=== PATIENT | female | born 1950 | race Caucasian/White ===

== ENCOUNTER 2016-12-20 21:09 | Observation (INO) | payer MEDICARE, BC ==
[2016-12-20] MEDS ORDERED: Nitroglycerin TAB 0.4 MG* 0.4 MG TAB SL ONE (21:45)
[2016-12-20] MEDS ORDERED: NS 0.9% 1000 ML* 1,000 ML IV SCH (21:45)
--- NOTE | 2016-12-20 22:05 | RAD ---
INDICATION: Chest pain. COMPARISON: Comparison is made with a prior study from December 08, 2014. TECHNIQUE: A portable view of the chest was obtained. FINDINGS: Cardiac and mediastinal contours appear to be within normal limits. The lungs are clear. No pleural effusion is seen. IMPRESSION: NO EVIDENCE FOR ACUTE DISEASE.
[2016-12-20 23:26] LABS: Hematocrit 40 % (35-47); Hemoglobin 13.3 g/dl (12.0-16.0); Mean Corpuscular HGB Conc 33 g/dl (31-36); Mean Corpuscular Hemoglobin 29 pg (27-31); Mean Corpuscular Volume 88 fL (80-97); Mean Platelet Volume 8 um3 (7.4-10.4); Red Blood Count 4.53 10^6/ul (4.0-5.4); Red Cell Distribution Width 14 % (10.5-15); White Blood Count 10.2 10^3/ul (3.5-10.8)
[2016-12-20 23:32] LABS: Urine Bacteria Absent (Absent); Urine Bilirubin Negative (Negative); Urine Glucose Negative (Negative); Urine Nitrite Negative (Negative)
[2016-12-20 23:43] LABS: BUN/Creatinine Ratio 33.8 (8-20); C Reactive Protein 4.08 mg/L (< 5.00); Calcium 9.7 mg/dL (8.6-10.3); EGFR African American 116.6 (>60); EGFR Non-African American 90.6 (>60); Magnesium 1.9 mg/dL (1.9-2.7); Potassium 3.5 mmol/L (3.5-5.0); Total Bilirubin 0.5 mg/dL (0.2-1.0)
[2016-12-20 23:45] LABS: Troponin I 0.01 ng/mL (<0.04)
[2016-12-21 00:28] LABS: TSH (Thyroid Stimulating Horm) 1.01 mcIU/mL (0.34-5.60)
--- NOTE | 2016-12-21 00:33 | ED ---
Asa Jay Janilya, scribed for Nhan Elma MD on 12/20/16 at 2130 . HPI Chest Pain - HPI Summary HPI Summary: A 66 y/o female came in to [facility] presenting w/ a sudden episode of CP that occurred today at 1915. Pt was pushing her 's wheelchair when she suddenly felt "a quick squeeze lasting 5-6 seconds". She reports that she sat down and waited for a few mins to catch her breath because she was having trouble breathing. She felt like there was a golf ball in her throat and like her Leroy's apple was swollen. She states that her throat was manning and tighter. Walking around, sitting down, and drinking iced tea did not alleviate the symptoms. Thereafter, she called 911. At [facility] now, throat still feels "a little funny". Pt denies feeling nauseous. In addition, she reports elevated blood pressure. Normally, according to pt, her blood pressure is 120/80. When she self-measured her bp, it was 202/78. PMHx HTN. Takes medicine for cholesterol and HTN. No PMHx DM. Had a stress test a year ago. FMHx angina-mother. PSHx gallbladder removed. Allergic to aspirin. - History of Current Complaint Chief Complaint: EDChestPainROMI Time Seen by Provider: 12/20/16 21:28 Hx Obtained From: Patient Pain Intensity: 0 - Allergy/Home Medications Allergies/Adverse Reactions: Allergies Allergy/AdvReac Type Severity Reaction Status Date / Time Aspirin Allergy Severe ITCHING, Verified 12/08/14 08:12 FACE TURNED PINK Eggs or Egg-derived Products Allergy Severe BLOATING Verified 12/08/14 08:12 Erythromycin Allergy Severe LIGHTHEADED, Verified 12/08/14 08:12 DIZZY, NEAR-SYNCOPE Metronidazole [From Flagyl] Allergy Severe LIGHTHEADED Verified 12/08/14 08:12 NESS Omeprazole Allergy Severe MUSCLE PAIN Verified 12/08/14 08:12 Penicillins Allergy Severe REDNESS, Verified 12/08/14 08:12 ITCHING Cephalexin [From Keflex] Allergy Unknown Unknown Verified 12/08/14 08:12 Reaction Details Doxycycline Allergy Unknown Unknown Verified 12/08/14 08:12 Reaction Details PMH/Surg Hx/FS Hx/Imm Hx Endocrine/Hematology History: Reports: Hx Thyroid Disease Cardiovascular History: Reports: Hx Hypertension Musculoskeletal History: Denies: Hx Rheumatoid Arthritis, Hx Osteoporosis - Cancer History Hx Chemotherapy: No Hx Radiation Therapy: No - Surgical History Surgery Procedure, Year, and Place: HYSTERECTOMY-1979 Infectious Disease History: No Infectious Disease History: Reports: Hx Shingles Denies: Traveled Outside the [place] in Last 30 Days - Family History Known Family History: Positive: Cardiac Disease - CAD, ANGINA, Other - CVA, BREAST CANCER, stomach problems - Social History Alcohol Use: None Hx Substance Use: No Substance Use Type: Reports: None Hx Tobacco Use: No Smoking Status (MU): Never Smoked Tobacco Review of Systems Positive: Chest Pain, Other - high blood pressure Positive: Shortness Of Breath Negative: Nausea All Other Systems Reviewed And Are Negative: Yes Physical Exam Triage Information Reviewed: Yes Vital Signs On Initial Exam: Initial Vitals Temp Pulse Resp BP Pulse Ox 97.9 F 64 16 132/51 100 12/20/16 21:21 12/20/16 21:21 12/20/16 21:21 12/20/16 21:21 12/20/16 21:21 Vital Signs Reviewed: Yes Appearance: Positive: Well-Appearing, No Pain Distress Skin: Positive: Warm, Skin Color Reflects Adequate Perfusion, Dry Head/Face: Positive: Normal Head/Face Inspection Eyes: Positive: EOMI, SRI ENT: Positive: Normal ENT inspection Neck: Positive: Supple, Nontender Respiratory/Lung Sounds: Positive: Clear to Auscultation, Breath Sounds Present Cardiovascular: Positive: RRR Abdomen Description: Positive: Nontender, Soft Bowel Sounds: Positive: Present Musculoskeletal: Positive: Normal, Strength/ROM Intact Neurological: Positive: Normal, Sensory/Motor Intact, Alert, Oriented to Person Place, Time Psychiatric: Positive: Affect/Mood Appropriate Diagnostics - Vital Signs Vital Signs Temp Pulse Resp BP Pulse Ox 12/20/16 21:21 97.9 F 64 16 132/51 100 - Laboratory Lab Results: Lab Results 12/20/16 12/20/16 12/20/16 Range/Units 22:30 22:30 22:30 WBC 10.2 (3.5-10.8) 10^3/ul RBC 4.53 (4.0-5.4) 10^6/ul Hgb 13.3 (12.0-16.0) g/dl Hct 40 (35-47) % MCV 88 (80-97) fL MCH 29 (27-31) pg MCHC 33 (31-36) g/dl RDW 14 (10.5-15) % Plt Count 226 (150-450) 10^3/ul MPV 8 (7.4-10.4) um3 Neut % (Auto) 69.6 (38-83) % Lymph % (Auto) 21.5 L (25-47) % [place] % (Auto) 6.8 (1-9) % Eos % (Auto) 0.7 (0-6) % Baso % (Auto) 1.4 (0-2) % Absolute Neuts (auto) 7.1 (1.5-7.7) 10^3/ul Absolute Lymphs (auto) 2.2 (1.0-4.8) 10^3/ul Absolute Monos (auto) 0.7 (0-0.8) 10^3/ul Absolute Eos (auto) 0.1 (0-0.6) 10^3/ul Absolute Basos (auto) 0.1 (0-0.2) 10^3/ul Absolute Nucleated RBC 0 10^3/ul Nucleated RBC % 0 INR (Anticoag Therapy) 0.91 (0.89-1.11) APTT 30.8 (26.0-36.3) seconds D-Dimer, Quantitative < 200 (Less Than 230) ng/mL Sodium (133-145) mmol/L Potassium (3.5-5.0) mmol/L Chloride (101-111) mmol/L Carbon Dioxide (22-32) mmol/L Anion Gap (2-11) mmol/L BUN (6-24) mg/dL Creatinine (0.51-0.95) mg/dL Est GFR ( Amer) (>60) Est GFR (Non-Af Amer) (>60) BUN/Creatinine Ratio (8-20) Glucose (70-100) mg/dL Lactic Acid (0.5-2.0) mmol/L Calcium (8.6-10.3) mg/dL Magnesium (1.9-2.7) mg/dL Total Bilirubin (0.2-1.0) mg/dL AST (13-39) U/L ALT (7-52) U/L Alkaline Phosphatase (34-104) U/L Total Creatine Kinase (10-223) U/L CK-MB (CK-2) (0.6-6.3) ng/mL Troponin I (<0.04) ng/mL C-Reactive Protein (< 5.00) mg/L B-Natriuretic Peptide ( - 100) pg/mL Total Protein (6.4-8.9) g/dL Albumin (3.2-5.2) g/dL Globulin (2-4) g/dL Albumin/Globulin Ratio (1-3) Lipase (11.0-82.0) U/L TSH (0.34-5.60) mcIU/mL Urine Color Straw Urine Appearance Clear Urine pH 5.0 (5-9) Ur Specific [place] 1.008 L (1.010-1.030) Urine Protein Negative (Negative) Urine Ketones Trace H (Negative) Urine Blood 2+ H (Negative) Urine Nitrate Negative (Negative) Urine Bilirubin Negative (Negative) Urine Urobilinogen Negative (Negative) Ur Leukocyte Esterase 2+ H (Negative) Urine WBC (Auto) 2+(11-20/hpf) H (Absent) Urine RBC (Auto) Trace(0-2/hpf) (Absent) Ur Squamous Epith Cells Present H (Absent) Urine Bacteria Absent (Absent) Urine Glucose Negative (Negative) 12/20/16 12/20/16 12/20/16 Range/Units 22:30 22:30 22:30 WBC (3.5-10.8) 10^3/ul RBC (4.0-5.4) 10^6/ul Hgb (12.0-16.0) g/dl Hct (35-47) % MCV (80-97) fL MCH (27-31) pg MCHC (31-36) g/dl RDW (10.5-15) % Plt Count (150-450) 10^3/ul MPV (7.4-10.4) um3 Neut % (Auto) (38-83) % Lymph % (Auto) (25-47) % [place] % (Auto) (1-9) % Eos % (Auto) (0-6) % Baso % (Auto) (0-2) % Absolute Neuts (auto) (1.5-7.7) 10^3/ul Absolute Lymphs (auto) (1.0-4.8) 10^3/ul Absolute Monos (auto) (0-0.8) 10^3/ul Absolute Eos (auto) (0-0.6) 10^3/ul Absolute Basos (auto) (0-0.2) 10^3/ul Absolute Nucleated RBC 10^3/ul Nucleated RBC % INR (Anticoag Therapy) (0.89-1.11) APTT (26.0-36.3) seconds D-Dimer, Quantitative (Less Than 230) ng/mL Sodium 139 (133-145) mmol/L Potassium 3.5 (3.5-5.0) mmol/L Chloride 105 (101-111) mmol/L Carbon Dioxide 26 (22-32) mmol/L Anion Gap 8 (2-11) mmol/L BUN 22 (6-24) mg/dL Creatinine 0.65 (0.51-0.95) mg/dL Est GFR ( Amer) 116.6 (>60) Est GFR (Non-Af Amer) 90.6 (>60) BUN/Creatinine Ratio 33.8 H (8-20) Glucose 102 H (70-100) mg/dL Lactic Acid 0.7 (0.5-2.0) mmol/L Calcium 9.7 (8.6-10.3) mg/dL Magnesium 1.9 (1.9-2.7) mg/dL Total Bilirubin 0.50 (0.2-1.0) mg/dL AST 21 (13-39) U/L ALT 20 (7-52) U/L Alkaline Phosphatase 62 (34-104) U/L Total Creatine Kinase 218 (10-223) U/L CK-MB (CK-2) 7.8 H (0.6-6.3) ng/mL Troponin I 0.01 (<0.04) ng/mL C-Reactive Protein 4.08 (< 5.00) mg/L B-Natriuretic Peptide 33 ( - 100) pg/mL Total Protein 7.0 (6.4-8.9) g/dL Albumin 4.0 (3.2-5.2) g/dL Globulin 3.0 (2-4) g/dL Albumin/Globulin Ratio 1.3 (1-3) Lipase 19 (11.0-82.0) U/L TSH 1.01 (0.34-5.60) mcIU/mL Urine Color Urine Appearance Urine pH (5-9) Ur Specific [place] (1.010-1.030) Urine Protein (Negative) Urine Ketones (Negative) Urine Blood (Negative) Urine Nitrate (Negative) Urine Bilirubin (Negative) Urine Urobilinogen (Negative) Ur Leukocyte Esterase (Negative) Urine WBC (Auto) (Absent) Urine RBC (Auto) (Absent) Ur Squamous Epith Cells (Absent) Urine Bacteria (Absent) Urine Glucose (Negative) Result Diagrams: 12/20/16 22:30 12/20/16 22:30 Lab Statement: Any lab studies that have been ordered have been reviewed, and results considered in the medical decision making process. - Radiology CXR Xray Interpretation: No Acute Changes - IMPRESSION: No evidence for acute disease. Radiology Interpretation Completed By: Radiologist Chest Pain Course/Dx - Course Assessment/Plan: DISCUSSED RESULTS WITH PATIENT. IN ED, WHEN PATIENT AMBULATED, THE THROAT FULLNESS SENSATION WOULD RETURN. ADMIT HOSPITALIST STABLE. - Diagnoses Provider Diagnoses: Chest pain Discharge - Discharge Plan Condition: Stable Disposition: ADMITTED TO [facility] Referrals: Meenakshi Ramey MD [Primary Care Provider] - The documentation as recorded by the Asa carias Janilya accurately reflects the service I personally performed and the decisions made by , Nhan Elam MD.
--- NOTE | 2016-12-21 00:36 | HP ---
H&P (Free Text) History and Physical: PCP: Alee Ramey MD Date/Time of Evaluation: 12/21/2016 0220 CC: chest pain HPI: Mrs Pond is a 66YO female reporting onset of sharp substernal chest pain radiating pressure into the anterior neck while pushing her 300# 's wheelchair at home. The pain went away with rest. There was a difficulty taking a deep breath, but she denies "shortness of breath" and is uncertain whether it made the pain worse. She did have some palpitations, but no N/V, sweating, or light-headedness. She denies prior similar episodes. Work up is thus far unrevealing. While in the ED she ambulated twice to the restroom with return of the anterior throat tightness which was improved by returning to bed and completely relieved with SL nitro. PMedHx HTN HLD GERD seasonal allergies Allergies Aspirin Allergy (Severe, Verified 12/08/14 08:12) ITCHING, FACE TURNED PINK Eggs or Egg-derived Products Allergy (Severe, Verified 12/08/14 08:12) BLOATING Erythromycin Allergy (Severe, Verified 12/08/14 08:12) LIGHTHEADED, DIZZY, NEAR-SYNCOPE Metronidazole [From Flagyl] Allergy (Severe, Verified 12/08/14 08:12) LIGHTHEADEDNESS Omeprazole Allergy (Severe, Verified 12/08/14 08:12) MUSCLE PAIN Penicillins Allergy (Severe, Verified 12/08/14 08:12) REDNESS, ITCHING Cephalexin [From Keflex] Allergy (Unknown, Verified 12/08/14 08:12) Unknown Reaction Details Doxycycline Allergy (Unknown, Verified 12/08/14 08:12) Unknown Reaction Details Ambulatory Orders Atenolol TAB* [Tenormin TAB*] 50 mg PO DAILY 08/26/14 Ezetimibe TAB* [Zetia TAB*] 10 mg PO DAILY 08/26/14 Famotidine TAB* [Pepcid TAB*] 40 mg PO DAILY 08/26/14 Hydrochlorothiazide TAB* [Hydrodiuril TAB*] 25 mg PO DAILY 08/26/14 Levothyroxine TAB* [Synthroid 75 MCG TAB*] 75 mcg PO 0800 08/26/14 Loratadine & Pseudoephedrine [Claritin-D 24 Hour 10-240 mg] 1 tab PO DAILY 08/26 Mometasone Furoate (Nasal) [Nasonex] 1 spray BOTH NARES DAILY 12/08/14 PSurgHx cholecystectomy appendectomy hysterectomy SocHx: no tobacco, alcohol, or recreational drug HX; lives with her ; full code status FamHx: reviewed, non-contributory ROS: as above, otherwise reviewed and all were negative Constitutional: NAD, normally developed, overweight white female vitals: Vital Signs Temp 36.6 C 12/20/16 21:21 Pulse 60 12/21/16 03:00 Resp 12 12/21/16 03:00 BP 112/57 12/21/16 03:00 Pulse Ox 95 12/21/16 03:00 Intake & Output 12/20/16 12/20/16 12/21/16 11:59 23:59 11:59 Weight 150 lb HEENM: atraumatic; sclera/conjunctiva: non-icteric/clear; hearing: intact; oropharynx: clear, mucosa moist Neck: soft tissue: non-tender; thyroid: normal Pulmonary: clear to auscultation bilaterally, good aeration, no accessory muscle use CV: RR/RR, normal S1S2, no carotid bruit, no jugular venous distention, 2+ B DP/ PT, no edema Abdominal: soft, non-distended, non-tender, no rebound/guarding/rigidity, normoactive bowel sounds, no hepatosplenomegaly or masses, no costovertebral angle tenderness Musculoskeletal: general: grossly intact; gait: stable Integumental: normal appearance and texture Psychiatric orientation: AA&O to PPS affect: calm mood: cooperative eye contact: good content: reliable responses: timely insight: good Testing: Lab Results 12/20/16 12/20/16 12/20/16 Range/Units 22:30 22:30 22:30 WBC 10.2 (3.5-10.8) 10^3/ul RBC 4.53 (4.0-5.4) 10^6/ul Hgb 13.3 (12.0-16.0) g/dl Hct 40 (35-47) % MCV 88 (80-97) fL MCH 29 (27-31) pg MCHC 33 (31-36) g/dl RDW 14 (10.5-15) % Plt Count 226 (150-450) 10^3/ul MPV 8 (7.4-10.4) um3 Neut % (Auto) 69.6 (38-83) % Lymph % (Auto) 21.5 L (25-47) % [place] % (Auto) 6.8 (1-9) % Eos % (Auto) 0.7 (0-6) % Baso % (Auto) 1.4 (0-2) % Absolute Neuts (auto) 7.1 (1.5-7.7) 10^3/ul Absolute Lymphs (auto) 2.2 (1.0-4.8) 10^3/ul Absolute Monos (auto) 0.7 (0-0.8) 10^3/ul Absolute Eos (auto) 0.1 (0-0.6) 10^3/ul Absolute Basos (auto) 0.1 (0-0.2) 10^3/ul Absolute Nucleated RBC 0 10^3/ul Nucleated RBC % 0 INR (Anticoag Therapy) 0.91 (0.89-1.11) APTT 30.8 (26.0-36.3) seconds D-Dimer, Quantitative < 200 (Less Than 230) ng/mL Sodium (133-145) mmol/L Potassium (3.5-5.0) mmol/L Chloride (101-111) mmol/L Carbon Dioxide (22-32) mmol/L Anion Gap (2-11) mmol/L BUN (6-24) mg/dL Creatinine (0.51-0.95) mg/dL Est GFR ( Amer) (>60) Est GFR (Non-Af Amer) (>60) BUN/Creatinine Ratio (8-20) Glucose (70-100) mg/dL Lactic Acid (0.5-2.0) mmol/L Calcium (8.6-10.3) mg/dL Magnesium (1.9-2.7) mg/dL Total Bilirubin (0.2-1.0) mg/dL AST (13-39) U/L ALT (7-52) U/L Alkaline Phosphatase (34-104) U/L Total Creatine Kinase (10-223) U/L CK-MB (CK-2) (0.6-6.3) ng/mL Troponin I (<0.04) ng/mL C-Reactive Protein (< 5.00) mg/L B-Natriuretic Peptide ( - 100) pg/mL Total Protein (6.4-8.9) g/dL Albumin (3.2-5.2) g/dL Globulin (2-4) g/dL Albumin/Globulin Ratio (1-3) Lipase (11.0-82.0) U/L TSH (0.34-5.60) mcIU/mL Urine Color Straw Urine Appearance Clear Urine pH 5.0 (5-9) Ur Specific [place] 1.008 L (1.010-1.030) Urine Protein Negative (Negative) Urine Ketones Trace H (Negative) Urine Blood 2+ H (Negative) Urine Nitrate Negative (Negative) Urine Bilirubin Negative (Negative) Urine Urobilinogen Negative (Negative) Ur Leukocyte Esterase 2+ H (Negative) Urine WBC (Auto) 2+(11-20/hpf) H (Absent) Urine RBC (Auto) Trace(0-2/hpf) (Absent) Ur Squamous Epith Cells Present H (Absent) Urine Bacteria Absent (Absent) Urine Glucose Negative (Negative) 12/20/16 12/20/16 12/20/16 Range/Units 22:30 22:30 22:30 WBC (3.5-10.8) 10^3/ul RBC (4.0-5.4) 10^6/ul Hgb (12.0-16.0) g/dl Hct (35-47) % MCV (80-97) fL MCH (27-31) pg MCHC (31-36) g/dl RDW (10.5-15) % Plt Count (150-450) 10^3/ul MPV (7.4-10.4) um3 Neut % (Auto) (38-83) % Lymph % (Auto) (25-47) % [place] % (Auto) (1-9) % Eos % (Auto) (0-6) % Baso % (Auto) (0-2) % Absolute Neuts (auto) (1.5-7.7) 10^3/ul Absolute Lymphs (auto) (1.0-4.8) 10^3/ul Absolute Monos (auto) (0-0.8) 10^3/ul Absolute Eos (auto) (0-0.6) 10^3/ul Absolute Basos (auto) (0-0.2) 10^3/ul Absolute Nucleated RBC 10^3/ul Nucleated RBC % INR (Anticoag Therapy) (0.89-1.11) APTT (26.0-36.3) seconds D-Dimer, Quantitative (Less Than 230) ng/mL Sodium 139 (133-145) mmol/L Potassium 3.5 (3.5-5.0) mmol/L Chloride 105 (101-111) mmol/L Carbon Dioxide 26 (22-32) mmol/L Anion Gap 8 (2-11) mmol/L BUN 22 (6-24) mg/dL Creatinine 0.65 (0.51-0.95) mg/dL Est GFR ( Amer) 116.6 (>60) Est GFR (Non-Af Amer) 90.6 (>60) BUN/Creatinine Ratio 33.8 H (8-20) Glucose 102 H (70-100) mg/dL Lactic Acid 0.7 (0.5-2.0) mmol/L Calcium 9.7 (8.6-10.3) mg/dL Magnesium 1.9 (1.9-2.7) mg/dL Total Bilirubin 0.50 (0.2-1.0) mg/dL AST 21 (13-39) U/L ALT 20 (7-52) U/L Alkaline Phosphatase 62 (34-104) U/L Total Creatine Kinase 218 (10-223) U/L CK-MB (CK-2) 7.8 H (0.6-6.3) ng/mL Troponin I 0.01 (<0.04) ng/mL C-Reactive Protein 4.08 (< 5.00) mg/L B-Natriuretic Peptide 33 ( - 100) pg/mL Total Protein 7.0 (6.4-8.9) g/dL Albumin 4.0 (3.2-5.2) g/dL Globulin 3.0 (2-4) g/dL Albumin/Globulin Ratio 1.3 (1-3) Lipase 19 (11.0-82.0) U/L TSH 1.01 (0.34-5.60) mcIU/mL Urine Color Urine Appearance Urine pH (5-9) Ur Specific [place] (1.010-1.030) Urine Protein (Negative) Urine Ketones (Negative) Urine Blood (Negative) Urine Nitrate (Negative) Urine Bilirubin (Negative) Urine Urobilinogen (Negative) Ur Leukocyte Esterase (Negative) Urine WBC (Auto) (Absent) Urine RBC (Auto) (Absent) Ur Squamous Epith Cells (Absent) Urine Bacteria (Absent) Urine Glucose (Negative) 12/21/16 Range/Units 01:25 WBC (3.5-10.8) 10^3/ul RBC (4.0-5.4) 10^6/ul Hgb (12.0-16.0) g/dl Hct (35-47) % MCV (80-97) fL MCH (27-31) pg MCHC (31-36) g/dl RDW (10.5-15) % Plt Count (150-450) 10^3/ul MPV (7.4-10.4) um3 Neut % (Auto) (38-83) % Lymph % (Auto) (25-47) % [place] % (Auto) (1-9) % Eos % (Auto) (0-6) % Baso % (Auto) (0-2) % Absolute Neuts (auto) (1.5-7.7) 10^3/ul Absolute Lymphs (auto) (1.0-4.8) 10^3/ul Absolute Monos (auto) (0-0.8) 10^3/ul Absolute Eos (auto) (0-0.6) 10^3/ul Absolute Basos (auto) (0-0.2) 10^3/ul Absolute Nucleated RBC 10^3/ul Nucleated RBC % INR (Anticoag Therapy) (0.89-1.11) APTT (26.0-36.3) seconds D-Dimer, Quantitative (Less Than 230) ng/mL Sodium (133-145) mmol/L Potassium (3.5-5.0) mmol/L Chloride (101-111) mmol/L Carbon Dioxide (22-32) mmol/L Anion Gap (2-11) mmol/L BUN (6-24) mg/dL Creatinine (0.51-0.95) mg/dL Est GFR ( Amer) (>60) Est GFR (Non-Af Amer) (>60) BUN/Creatinine Ratio (8-20) Glucose (70-100) mg/dL Lactic Acid (0.5-2.0) mmol/L Calcium (8.6-10.3) mg/dL Magnesium (1.9-2.7) mg/dL Total Bilirubin (0.2-1.0) mg/dL AST (13-39) U/L ALT (7-52) U/L Alkaline Phosphatase (34-104) U/L Total Creatine Kinase (10-223) U/L CK-MB (CK-2) (0.6-6.3) ng/mL Troponin I 0.01 (<0.04) ng/mL C-Reactive Protein (< 5.00) mg/L B-Natriuretic Peptide ( - 100) pg/mL Total Protein (6.4-8.9) g/dL Albumin (3.2-5.2) g/dL Globulin (2-4) g/dL Albumin/Globulin Ratio (1-3) Lipase (11.0-82.0) U/L TSH (0.34-5.60) mcIU/mL Urine Color Urine Appearance Urine pH (5-9) Ur Specific [place] (1.010-1.030) Urine Protein (Negative) Urine Ketones (Negative) Urine Blood (Negative) Urine Nitrate (Negative) Urine Bilirubin (Negative) Urine Urobilinogen (Negative) Ur Leukocyte Esterase (Negative) Urine WBC (Auto) (Absent) Urine RBC (Auto) (Absent) Ur Squamous Epith Cells (Absent) Urine Bacteria (Absent) Urine Glucose (Negative) ECG, personally reviewed: NSR rate 61, no ischemia CXR, personally reviewed: IMPRESSION: NO EVIDENCE FOR ACUTE DISEASE. Impression: 66F presenting with a constellation concerning for unstable angina DIAGNOSIS & PLAN Primary unstable angina : telemetry : trend troponin : aspirin : continue atenolol : heparin GTT : check lipids in AM : repeat ECG in AM : supplemental oxygen : recommend chemical nuclear stress test or cardiology consult prior to discharge : supportive care Secondary HTN : continue atenolol : hold HCTZ HLD : continue rosuvastatin GERD : continue famotidine hypothyroidism : continue levothyroxine Admission Rational: observation for r/o ACS DVTp: SCDs & heparin SQ Code Status: full HCP:
[2016-12-21] MEDS ORDERED: Ondansetron INJ* 2 MG/ML VIAL IV PRN (02:49)
[2016-12-21] MEDS ORDERED: CMCS: Melatonin (NF) 3 MG TAB PO PRN (02:49)
[2016-12-21] MEDS ORDERED: NS 0.9% 1000 ML* 1,000 ML IV SCH (03:00)
[2016-12-21] MEDS ORDERED: Heparin VIAL(*) 5000 UNITS/ML VIAL (FIVE THOUSAND) ONE (03:52)
[2016-12-21] MEDS: Heparin DRIP 25,000 UNITS(*) 25,000 UNITS/500 ML BAG IVPB SCH ×2 (04:15→08:53)
[2016-12-21] MEDS ORDERED: Heparin VIAL(*) 5000 UNITS/ML VIAL (FIVE THOUSAND) IV SCH (05:00)
[2016-12-21] MEDS: Levothyroxine TAB* 75 MCG TAB PO SCH (05:34)
[2016-12-21 06:13] LABS: HDL Cholesterol 75.4 mg/dL
[2016-12-21] MEDS: Atenolol TAB* 50 MG PO SCH (07:50)
[2016-12-21] MEDS: Famotidine TAB* 20 MG PO SCH (07:50)
[2016-12-21] MEDS ORDERED: Atorvastatin* 40 MG TAB PO SCH ×2 (09:00→20:15)
[2016-12-21] MEDS ORDERED: Docusate CAP* 100 MG PO SCH (09:00)
--- NOTE | 2016-12-21 13:09 | PN ---
Subjective Date of Service: 12/21/16 Interval History: No more chest or throat pain. The throat pain she had in the ED after walking to the [place] was different than the chest pain she had while pushing her in his WC. Objective Active Medications: Acetaminophen (Tylenol Tab*) 650 mg PO Q6H PRN PRN Reason: FEVER/PAIN Atenolol (Tenormin Tab*) 25 mg PO DAILY [facility] Last Admin: 12/21/16 07:50 Dose: 25 mg Atorvastatin Calcium (Lipitor*) 40 mg PO 2015 [facility] Docusate Sodium (Colace Cap*) 200 mg PO BID [facility] Last Admin: 12/21/16 09:39 Dose: Not Given Enoxaparin Sodium (Lovenox(*)) 40 mg SUBCUT Q24H [facility] Famotidine (Pepcid Tab*) 40 mg PO DAILY [facility] Last Admin: 12/21/16 07:50 Dose: 40 mg Sodium Chloride (Ns 0.9% 1000 Ml*) 1,000 mls @ 75 mls/hr IV PER RATE [facility] Levothyroxine Sodium (Synthroid Tab*) 75 mcg PO DAILY@0600 [facility] Last Admin: 12/21/16 05:34 Dose: 75 mcg Melatonin (Melatonin (Nf)) 3 mg PO BEDTIME PRN; Protocol PRN Reason: Sleep Ondansetron HCl (Zofran Inj*) 4 mg IV Q6H PRN PRN Reason: NAUSEA Vital Signs 12/21/16 12/21/16 12/21/16 05:00 05:25 05:44 Temperature 97.8 F Pulse Rate 56 57 Respiratory 17 16 16 Rate Blood Pressure 105/73 99/51 (mmHg) O2 Sat by Pulse 92 100 Oximetry 12/21/16 12/21/16 07:16 08:00 Temperature 98.0 F Pulse Rate 51 Respiratory 14 14 Rate Blood Pressure 109/50 (mmHg) O2 Sat by Pulse 99 Oximetry Oxygen Devices in Use Now: None Appearance: Alert, partly up inbed. In good spirits. Looks comfortable. Eyes: No Scleral Icterus Ears/Nose/Mouth/Throat: Clear Oropharnyx, Mucous Membranes Moist Neck: NL Appearance and Movements; NL JVP, No Thyroid Enlargement, Masses Respiratory: Symmetrical Chest Expansion and Respiratory Effort, Clear to Auscultation, Clear to Percussion Extremities: No Edema, No Clubbing, Cyanosis, - Skin: No Rash or Ulcers, No Nodules or Sclerosis, - Neurological: Alert and Oriented x 3, NL Sensation Result Diagrams: 12/20/16 22:30 12/20/16 22:30 Additional Lab and Data: Lab Results 12/20/16 12/20/16 12/20/16 Range/Units 22:30 22:30 22:30 WBC 10.2 (3.5-10.8) 10^3/ul RBC 4.53 (4.0-5.4) 10^6/ul Hgb 13.3 (12.0-16.0) g/dl Hct 40 (35-47) % MCV 88 (80-97) fL MCH 29 (27-31) pg MCHC 33 (31-36) g/dl RDW 14 (10.5-15) % Plt Count 226 (150-450) 10^3/ul MPV 8 (7.4-10.4) um3 Neut % (Auto) 69.6 (38-83) % Lymph % (Auto) 21.5 L (25-47) % [place] % (Auto) 6.8 (1-9) % Eos % (Auto) 0.7 (0-6) % Baso % (Auto) 1.4 (0-2) % Absolute Neuts (auto) 7.1 (1.5-7.7) 10^3/ul Absolute Lymphs (auto) 2.2 (1.0-4.8) 10^3/ul Absolute Monos (auto) 0.7 (0-0.8) 10^3/ul Absolute Eos (auto) 0.1 (0-0.6) 10^3/ul Absolute Basos (auto) 0.1 (0-0.2) 10^3/ul Absolute Nucleated RBC 0 10^3/ul Nucleated RBC % 0 INR (Anticoag Therapy) 0.91 (0.89-1.11) APTT 30.8 (26.0-36.3) seconds D-Dimer, Quantitative < 200 (Less Than 230) ng/mL Sodium (133-145) mmol/L Potassium (3.5-5.0) mmol/L Chloride (101-111) mmol/L Carbon Dioxide (22-32) mmol/L Anion Gap (2-11) mmol/L BUN (6-24) mg/dL Creatinine (0.51-0.95) mg/dL Est GFR ( Amer) (>60) Est GFR (Non-Af Amer) (>60) BUN/Creatinine Ratio (8-20) Glucose (70-100) mg/dL Lactic Acid (0.5-2.0) mmol/L Calcium (8.6-10.3) mg/dL Magnesium (1.9-2.7) mg/dL Total Bilirubin (0.2-1.0) mg/dL AST (13-39) U/L ALT (7-52) U/L Alkaline Phosphatase (34-104) U/L Total Creatine Kinase (10-223) U/L CK-MB (CK-2) (0.6-6.3) ng/mL Troponin I (<0.04) ng/mL C-Reactive Protein (< 5.00) mg/L B-Natriuretic Peptide ( - 100) pg/mL Total Protein (6.4-8.9) g/dL Albumin (3.2-5.2) g/dL Globulin (2-4) g/dL Albumin/Globulin Ratio (1-3) Lipase (11.0-82.0) U/L TSH (0.34-5.60) mcIU/mL Urine Color Straw Urine Appearance Clear Urine pH 5.0 (5-9) Ur Specific [place] 1.008 L (1.010-1.030) Urine Protein Negative (Negative) Urine Ketones Trace H (Negative) Urine Blood 2+ H (Negative) Urine Nitrate Negative (Negative) Urine Bilirubin Negative (Negative) Urine Urobilinogen Negative (Negative) Ur Leukocyte Esterase 2+ H (Negative) Urine WBC (Auto) 2+(11-20/hpf) H (Absent) Urine RBC (Auto) Trace(0-2/hpf) (Absent) Ur Squamous Epith Cells Present H (Absent) Urine Bacteria Absent (Absent) Urine Glucose Negative (Negative) 12/20/16 12/20/16 12/20/16 Range/Units 22:30 22:30 22:30 WBC (3.5-10.8) 10^3/ul RBC (4.0-5.4) 10^6/ul Hgb (12.0-16.0) g/dl Hct (35-47) % MCV (80-97) fL MCH (27-31) pg MCHC (31-36) g/dl RDW (10.5-15) % Plt Count (150-450) 10^3/ul MPV (7.4-10.4) um3 Neut % (Auto) (38-83) % Lymph % (Auto) (25-47) % [place] % (Auto) (1-9) % Eos % (Auto) (0-6) % Baso % (Auto) (0-2) % Absolute Neuts (auto) (1.5-7.7) 10^3/ul Absolute Lymphs (auto) (1.0-4.8) 10^3/ul Absolute Monos (auto) (0-0.8) 10^3/ul Absolute Eos (auto) (0-0.6) 10^3/ul Absolute Basos (auto) (0-0.2) 10^3/ul Absolute Nucleated RBC 10^3/ul Nucleated RBC % INR (Anticoag Therapy) (0.89-1.11) APTT (26.0-36.3) seconds D-Dimer, Quantitative (Less Than 230) ng/mL Sodium 139 (133-145) mmol/L Potassium 3.5 (3.5-5.0) mmol/L Chloride 105 (101-111) mmol/L Carbon Dioxide 26 (22-32) mmol/L Anion Gap 8 (2-11) mmol/L BUN 22 (6-24) mg/dL Creatinine 0.65 (0.51-0.95) mg/dL Est GFR ( Amer) 116.6 (>60) Est GFR (Non-Af Amer) 90.6 (>60) BUN/Creatinine Ratio 33.8 H (8-20) Glucose 102 H (70-100) mg/dL Lactic Acid 0.7 (0.5-2.0) mmol/L Calcium 9.7 (8.6-10.3) mg/dL Magnesium 1.9 (1.9-2.7) mg/dL Total Bilirubin 0.50 (0.2-1.0) mg/dL AST 21 (13-39) U/L ALT 20 (7-52) U/L Alkaline Phosphatase 62 (34-104) U/L Total Creatine Kinase 218 (10-223) U/L CK-MB (CK-2) 7.8 H (0.6-6.3) ng/mL Troponin I 0.01 (<0.04) ng/mL C-Reactive Protein 4.08 (< 5.00) mg/L B-Natriuretic Peptide 33 ( - 100) pg/mL Total Protein 7.0 (6.4-8.9) g/dL Albumin 4.0 (3.2-5.2) g/dL Globulin 3.0 (2-4) g/dL Albumin/Globulin Ratio 1.3 (1-3) Lipase 19 (11.0-82.0) U/L TSH 1.01 (0.34-5.60) mcIU/mL Urine Color Urine Appearance Urine pH (5-9) Ur Specific [place] (1.010-1.030) Urine Protein (Negative) Urine Ketones (Negative) Urine Blood (Negative) Urine Nitrate (Negative) Urine Bilirubin (Negative) Urine Urobilinogen (Negative) Ur Leukocyte Esterase (Negative) Urine WBC (Auto) (Absent) Urine RBC (Auto) (Absent) Ur Squamous Epith Cells (Absent) Urine Bacteria (Absent) Urine Glucose (Negative) Assess/Plan/Problems-Billing Assessment: - Patient Problems (1) Chest pain as manifestation of blood transfusion reaction Current Visit: Yes Status: Acute Code(s): R07.9 - CHEST PAIN, UNSPECIFIED; T80.89XA - OTH COMP FOL INFUSION, TRANSFUSE AND THERAPUTC INJECT, INIT; Y84.8 - OTH MEDICAL PROCEDURES CAUSE ABN REACT/COMPL, W/O MISADVNT SNOMED Code(s): 24378542 Comment: All 3 tropins wnl. ECG x 2 wnl. Stress test 12/22. Stop heparin. (2) HTN (hypertension) Current Visit: Yes Status: Acute Code(s): I10 - ESSENTIAL (PRIMARY) HYPERTENSION SNOMED Code(s): 70364973 Comment: Continue home dose atenolol. Thiazide is on hold. (3) Hypothyroid Current Visit: Yes Status: Acute Code(s): E03.9 - HYPOTHYROIDISM, UNSPECIFIED SNOMED Code(s): 39875057 Comment: Continue levothyroxine. TSH wnl 12/20/16. (4) GERD (gastroesophageal reflux disease) Current Visit: Yes Status: Acute Code(s): K21.9 - GASTRO-ESOPHAGEAL REFLUX DISEASE WITHOUT ESOPHAGITIS SNOMED Code(s): 592289506 Comment: Continue home dose famotidine.
[2016-12-21] MEDS: Acetaminophen TAB* 325 MG PO PRN (16:37)
[2016-12-21] MEDS ORDERED: Enoxaparin(*) 40 MG/0.4 ML SYR SUBCUT SCH (18:00)
[2016-12-22] MEDS: Levothyroxine TAB* 75 MCG TAB PO SCH ×2 (04:56→06:50)
[2016-12-22] MEDS ORDERED: Heparin VIAL(*) 5000 UNITS/ML VIAL (FIVE THOUSAND) SUBCUT SCH (06:00)
[2016-12-22] MEDS: Acetaminophen TAB* 325 MG PO PRN (06:48)
--- NOTE | 2016-12-22 10:05 | RAD ---
Edited for charges. Indication: Chest pain. Myocardial perfusion scan was performed utilizing 1 day protocol. Rest myocardial perfusion was performed after intravenous injection of 10.8 mCi of technetium 99m tetrofosmin. Treadmill stress study was performed and the maximum heart rate of cheek was 91% of the maximum predicted value. 26.5 mCi of technetium 99m tetrofosmin was then injected for the stress portion of the study. There is homogeneous distribution of the radiotracer throughout the left ventricle. There is no evidence of any fixed or reversible perfusion defect identified. The ejection fraction at stress is 86%. Evaluation of wall motion demonstrates no evidence of focal wall motion abnormality. IMPRESSION: No evidence of fixed or reversible perfusion defect is identified. ASSESSMENT: Low risk Based on imaging criteria from ACC/AHA 2002 Guideline Update for the Management of Patients With Chronic Stable Angina Table 23. Noninvasive Risk Stratification. MTDD
[2016-12-22] MEDS: Atenolol TAB* 50 MG PO SCH (11:52)
[2016-12-22] MEDS: Famotidine TAB* 20 MG PO SCH (11:53)
[2016-12-22 11:59] VITALS: BP 121/53
--- NOTE | 2016-12-22 12:13 | ECHO ---
Patient: DOTTY VALERIO [facility] Rec#: [id number] : 1950 Date: 12/22/2016 Age: 66y Height: 154 cm / 60.6 in Weight: 68 kg / 149.9 lbs Sex: F BSA: 1.66 Room#: 453 Admit Date#: 12/21/2016 Type: Inpatient Referring: Eder Hernandez MD Reading: Abel Ballesteros MD Health Promotion Officer: Reji Giron RDCS CC: Meenakshi Ramey MD Transthoracic Echocardiogram Indication: Unstable,angina BP: 99/51 HR: 61 Rhythm: NSR Findings History: HTN,HLD,GERD Technical Comments: The study quality is fair. Completed 1030 Left Ventricle: The left ventricular chamber size is normal. Global left ventricular wall motion and contractility are within normal limits. There is normal left ventricular systolic function. The estimated ejection fraction is 55-60%. Left Atrium: The left atrial chamber size is normal. Right Ventricle: The right ventricular cavity size is normal. The right ventricular global systolic function is normal. Right Atrium: The right atrial cavity size is normal. Aortic Valve: The aortic valve structure is normal. There is aortic annular calcification. There is no evidence of aortic regurgitation. There is no evidence of aortic stenosis. Mitral Valve: The mitral valve leaflets appear normal. There is no evidence of mitral regurgitation. There is no evidence of mitral stenosis. Tricuspid Valve: The tricuspid valve appears normal in structure and function. There is trace tricuspid regurgitation. Unable to estimate the right ventricular systolic pressure. Pulmonic Valve: The pulmonic valve structure is not well visualized. Pericardium: There is no pericardial effusion. Aorta: There is no dilatation of the ascending aorta. There is no dilatation of the aortic arch. There is no dilation of the aortic root. Pulmonary Artery: The main pulmonary artery is not well visualized. Venous: The inferior vena cava appears normal in size. There is a greater than 50% respiratory change in the inferior vena cava dimension. Conclusions Global left ventricular wall motion and contractility are within normal limits. There is normal left ventricular systolic function. The estimated ejection fraction is 55-60%. There is no evidence of aortic regurgitation. There is no evidence of mitral regurgitation. There is trace tricuspid regurgitation. Unable to estimate the right ventricular systolic pressure. There is no pericardial effusion. Measurements Name Value Normal Range RVIDd (AP) 2D 2.6 cm (0.9 - 2.6) RVDdMajor (2D) 2.1 cm (2.2 - 4.4) RAd ISD 4CH 4.2 cm (3.4 - 4.9) RA (A4C)W 3.3 cm (2.9 - 4.6) IVSd (2D) 1.1 cm (0.6 - 1) LVPWd (2D) 0.9 cm (0.6 - 1) LVIDd (2D) 3.6 cm (3.6 - 5.4) LVIDs (2D) 2.6 cm - LV FS (2D) 28 % (25 - 45) Aortic Annulus 1.6 cm (1.4 - 2.6) Ao root diameter (2D) 2.7 cm (2.1 - 3.5) Ascending Ao 2.5 cm (2.1 - 3.4) Aortic arch 2.6 cm (1.8 - 3.4) LA dimension (AP) 2D 3.8 cm (2.3 - 3.8) LAd ISD 4CH 5 cm (2.9 - 5.3) LA ISD 4CH W 3 cm (2.5 - 4.5) Name Value Normal Range LA ESV SP 4CH (A/L) 34 ml - LA ESV SP 2CH (A/L) 57 ml - LA ESV BP (A/L) 46 ml - LA ESV BP (A/L) index 27.41 ml/m2 - LA ESV SP 4CH (MOD) 32 ml - LA ESV SP 2CH (MOD) 53 ml - Name Value Normal Range MV E-wave Vmax 0.68 m/sec - MV deceleration time 234 msec - MV A-wave Vmax 75 m/sec - MV E:A ratio 89 ratio - LV septal e' Vmax 0.09 m/sec - LV lateral e' Vmax 0.09 m/sec - LV E:e' septal ratio 7.5 ratio - LV E:e' lateral ratio 7.5 ratio - Name Value Normal Range LVOT Vmax 1 m/sec - Name Value Normal Range PV Vmax 0.8 m/sec -
--- NOTE | 2016-12-22 23:21 | DS ---
DISCHARGE SUMMARY: DATE OF ADMISSION: 12/20/16 DATE OF DISCHARGE: 12/22/16 PRIMARY CARE PROVIDERS: Dr. Ramey and Yumiko Barros NP. PRIMARY DIAGNOSIS: Chest pain. SECONDARY DIAGNOSES: Include: 1. Hypertension. 2. Hyperlipidemia. 3. Gastroesophageal reflux disease. 4. Seasonal allergies. MEDICATIONS AT DISCHARGE: 1. Vitamin D3 2000 International Units daily. 2. Rosuvastatin 20 mg daily. 3. Atenolol 25 mg daily. 4. Famotidine 40 mg daily. 5. Synthroid 75 mg daily. Please note the discontinuation of hydrochlorothiazide secondary to normal to low blood pressure during the course of the hospital stay. PROCEDURES PERFORMED DURING HOSPITAL STAY: Exercise stress test with nuclear imaging, impression: No evidence of fixed or reversible perfusion defect is identified with an estimated EF at stress of 86%. The assessment is low risk. HISTORY OF PRESENT ILLNESS AND HOSPITAL COURSE: This is a pleasant 66-year-old female who presented to the hospital with sharp substernal chest pressure radiating to her anterior neck while pushing her with exertion. She was admitted to the hospital secondary to concern for coronary ischemic event. She had 3 negative troponins peaking at 0.01 with 3 consecutive checks. Her LDL is 63, her total cholesterol is 145, and her triglyceride was 35. She underwent an exercise stress test indicated above which was low risk without evidence of ischemia. She remained chest pain free throughout the course of her hospital stay. Of note, she was discontinued on hydrochlorothiazide. Her blood pressures off of hydrochlorothiazide were peaked at 121/53 on the day of discharge. Potentially, low blood pressure at home could have contributed to her chest pain. Further monitoring as an outpatient will be important to ensure continued blood pressure control. Reasons to return to the hospital including but are not limited to worsening or recurrent symptoms, chest pain, shortness of breath, nausea, vomiting, lightheadedness, loss of consciousness, fever, chills, night sweats, and inability to obtain or tolerate her medications were discussed with the patient. She acknowledged understanding. CC: Dr. Ramey; Yumiko Barros NP* [id number]/[facility] #: [id number] MTDD
== END 2016-12-22 13:20 | disposition home or self-care (01) ==
LOC: ED 21:09 → MEDTELE 12-21 04:15
PROVIDERS: ADMIT Hospitalist; ATTEND Internal Medicine
DX: I20.9 Angina pectoris, unspecified (principal); R07.9 Chest pain, unspecified; I10 Essential (primary) hypertension; E78.5 Hyperlipidemia, unspecified; K21.9 Gastro-esophageal reflux disease without esophagitis; E03.9 Hypothyroidism, unspecified; R06.00 Dyspnea, unspecified; Z79.899 Other long term (current) drug therapy; Z88.1 Allergy status to other antibiotic agents; Z88.6 Allergy status to analgesic agent; Z88.8 Allergy status to other drugs, medicaments and biological substances; Z88.0 Allergy status to penicillin; R00.1 Bradycardia, unspecified
CPT/HCPCS: 36415; 71010; 78452; 80053; 80061; 81003; 81015; 82550; 82553; 83605; 83690; 83735; 83880; 84443; 84484; 85025; 85379; 85610; 85730; 86140; 87077; 87086; 93005; 93017; 93306; 96372; 96374; 99284; A9270-GY; A9502; G0378; J1644; J1650

== ENCOUNTER 2018-06-19 14:07 | Emergency (ER) | payer MEDICARE, BC ==
[2018-06-19] MEDS ORDERED: Meclizine TAB* 12.5 MG PO ONE (14:12)
[2018-06-19] MEDS ORDERED: NS 0.9% 1000 ML* 1,000 ML IV ONE (14:12)
--- NOTE | 2018-06-19 14:33 | ED ---
Dizziness - HPI Summary HPI Summary: This is scribe Makayla Banks documenting for attending Cm Simon MD. Pt is a 67 y/o female BIBA who presents to the ED c/o dizziness since this morning at 5: 15. She states last night she fell, but denies hitting her head. This morning she woke up and felt nauseated, dizzy, off-balance, and had neck pain. The dizziness has been worsening, is described as the room spinning, and is made worse by movement and closing eyes. She also c/o headache and sinus congestion for several days, but thought it was due to allergies. Pt had elevated BP at home. Pt was given 4 mg Zofran by EMS. She denies any blurred vision, CP, or SOB. Pt initially thought this was a migraine, but usually has photophobia. PMHx vertigo and HTN, but denies any heart issues. Pt denies any smoking or alcohol use. - History Of Current Complaint Stated Complaint: DIZZINESS,N/V Time Seen by Provider: 06/19/18 14:12 Hx Obtained From: Patient, EMS Onset/Duration: Still Present Timing: Hours - 5:15 Today Character: Room Spinning, Dizzy Aggravating Factor(s): Other - Movement, closing eyes Alleviating Factor(s): Nothing Associated Signs And Symptoms: Positive: Nausea, Other: - Neck pain, headache. Negative: Chest Pain, SOB, Visual Changes - Allergies/Home Medications Allergies/Adverse Reactions: Allergies Allergy/AdvReac Type Severity Reaction Status Date / Time aspirin Allergy Itching Verified 06/19/18 14:41 cephalexin [From Keflex] Allergy Unknown Verified 06/19/18 14:41 Reaction Details doxycycline Allergy Stomach Verified 06/19/18 14:41 Cramps egg Allergy Nausea And Verified 06/19/18 14:41 Vomiting erythromycin base Allergy Dizziness Verified 06/19/18 14:41 levofloxacin [From Levaquin] Allergy Tingling Verified 06/19/18 14:41 metronidazole [From Flagyl] Allergy Nausea And Verified 06/19/18 14:41 Vomiting omeprazole Allergy Muscle Ache Verified 06/19/18 14:41 Penicillins Allergy Itching Verified 06/19/18 14:41 Home Medications: Home Medications Albuterol Sulfate [Ventolin Hfa] 1 - 2 puff INH Q4HR PRN 06/19/18 [History Confirmed 06/19/18] Saccharomyces Boulardii [Florastorkids] 250 mg PO BID 06/19/18 [History Confirmed 06/19/18] PMH/Surg Hx/FS Hx/Imm Hx Endocrine/Hematology History: Reports: Hx Thyroid Disease Denies: Hx Diabetes Cardiovascular History: Reports: Hx Angina, Hx Hypercholesterolemia, Hx Hypertension Denies: Hx Coronary Artery Disease, Hx Myocardial Infarction, Hx Valvular Heart Disease Respiratory History: Denies: Hx Asthma, Hx Chronic Obstructive Pulmonary Disease (COPD) GI History: Reports: Hx Diverticulosis - Diverticulitis, Hx Gastroesophageal Reflux Disease, Hx Irritable Bowel Musculoskeletal History: Denies: Hx Rheumatoid Arthritis, Hx Osteoporosis Sensory History: Reports: Hx Contacts or Glasses Opthamlomology History: Reports: Hx Contacts or Glasses - Cancer History Hx Chemotherapy: No Hx Radiation Therapy: No - Surgical History Surgery Procedure, Year, and Place: HYSTERECTOMY-1979 Infectious Disease History: Reports: Hx Shingles - Family History Known Family History: Positive: Cardiac Disease - CAD, ANGINA, Diabetes, Other - CVA, BREAST CANCER, stomach problems - Social History Alcohol Use: None Hx Substance Use: No Substance Use Type: Reports: None Hx Tobacco Use: No Smoking Status (MU): Never Smoked Tobacco Review of Systems Negative: Photophobia, Blurred Vision ENT: Other - Sinus congestion Negative: Chest Pain Negative: Shortness Of Breath Positive: Nausea Positive: Myalgia - Neck pain Neurological: Other - Dizzy, off-balance Positive: Headache All Other Systems Reviewed And Are Negative: Yes Physical Exam - Summary Physical Exam Summary: VITAL SIGNS: Reviewed. GENERAL: Patient is a well-developed and nourished FEMALE who is lying comfortable in the stretcher.Patient is not in any acute respiratory distress. HEAD AND FACE: No signs of trauma. No ecchymosis, hematomas or skull depressions. No sinus tenderness. EYES: PERRLA, EOMI x 2, No injected conjunctiva, no nystagmus. No photophobia. EARS: Hearing grossly intact. Ear canals and tympanic membranes are within normal limits. MOUTH: Oropharynx within normal limits. NECK: Supple, trachea is midline, no adenopathy, no JVD, no carotid bruit, no c- spine tenderness, neck with full ROM. No meningeal signs, no Kernig's or brudzinskis signs. CHEST: Symmetric, no tenderness at palpation LUNGS: Clear to auscultation bilaterally. No wheezing or crackles. CVS: Regular rate and rhythm, S1 and S2 present, no murmurs or gallops appreciated. ABDOMEN: Soft, non-tender. No signs of distention. No rebound no guarding, and no masses palpated. Bowel sounds are normal. EXTREMITIES: FROM in all major joints, no edema, no cyanosis or clubbing. NEURO: Alert and oriented x 3. No acute neurological deficits. Speech is normal and follows commands. SKIN: Dry and warm GCS: 15 Triage Information Reviewed: Yes Vital Signs Reviewed: Yes Diagnostics - Laboratory Result Diagrams: 06/19/18 15:01 06/19/18 15:01 Lab Statement: Any lab studies that have been ordered have been reviewed, and results considered in the medical decision making process. - Radiology CXR Radiology Interpretation Completed By: Radiologist - 14:12 Stigmata of obstructive lung disease. No acute pulmonary or cardiac process evident. ED physician reviewed radiology report. - CT Brain CT CT Interpretation Completed By: Radiologist - 14:12 Mild to moderate involutional change and stigmata of chronic small vessel ischemic disease with mild progression. No acute intracranial process evident. ED Physician reviewed radiology report. - EKG 15:08 Cardiac Rate: Bradycardia - 50 bpm EKG Rhythm: Sinus Rhythm ST Segment: Normal EKG Comparison: No Significant Change - No change from EKG on 12/21/16 Re-Evaluation - Re-Evaluation First Eval Re-Evaluation Time: 16:45 Change: Improved Comment: Pt is doing better and has no dizziness. Pt was able to ambulate to bathroom with a steady gait. Dizzy Course/Dx - Course Assessment/Plan: This patient is a 67-year-old female who presents to the emergency department with a chief complaint having dizziness. She reports that the room is spinning. Patient has past medical history significant for vertigo. Blood work without any significant abnormality except for potassium of 3.4 and glucose of 110. Troponin is 0.00. Chest x-ray impression: Stigmata for obstructive lung disease. No acute pulmonary or cardiac process evident. Head CT impression: Mild to moderately involutional changes and a stigmata for chronic small vessel ischemic disease with marked progression. No acute intracranial process. I have performed multiple reassessments, the patient is neurologically intact and she doesnt have any acute neurological deficits. Since all the patients tests are within normal limits, the patient has resolved all her complaints I discussed all the findings and test results with the patient and and to follow-up with primary care physician. I will be prescribing the patient meclizine for the vertigo. She was instructed to return to the emergency room if the symptoms became worse, she develops an headache, visual changes, chest pain and palpitations. All the patients concerns were addressed and she has no further questions. - Diagnoses Differential Diagnosis/HQI/PQRI: Benign Paroxysmal Positional Vertigo, Dysrhythmia, Meniere's Disease, Medication Reaction Provider Diagnoses: Vertigo Discharge - Sign-Out/Discharge Documenting (check all that apply): Patient Departure - Discharge - Discharge Plan Condition: Stable Disposition: HOME Prescriptions: Meclizine TAB* [Antivert 12.5 TAB*] 25 mg PO TID PRN #30 tab PRN Reason: Vertigo Patient Education Materials: Vertigo (ED) Referrals: Meenakshi Ramey MD [Primary Care Provider] - 3 Days Additional Instructions: RETURN TO THE ED FOR ANY WORSENING OR NEW SYMPTOMS.
--- NOTE | 2018-06-19 14:51 | RAD ---
Indication: Dizziness, nausea, vomiting. Comparison: December 08, 2014 Technique: Noncontrast CT vertex of skull through foramen magnum. Report: Mild to moderate prominence of the cerebral sulci. Unremarkable ventricles and basal cisterns. Decreased density in the periventricular and subcortical white matter while non-specific is most likely due to chronic microangiopathy. Negative for valdez matter white matter obscuration, intra or extra-axial hemorrhage, or mass effect. Unremarkable calvarium and skull base. Grossly clear visualized paranasal sinuses and mastoid air spaces. Unremarkable scalp. IMPRESSION: #. Mild to moderate involutional change and stigmata of chronic small vessel ischemic disease with mild progression. #. No acute intracranial process evident.
--- NOTE | 2018-06-19 14:54 | RAD ---
INDICATION: Dizziness. Elevated blood pressure. COMPARISON: December 20, 2016 TECHNIQUE: Dual energy PA and routine lateral views of the chest were obtained. REPORT: Elevated lung volumes and both diffuse mild prominence of the interstitial markings and patchy rarefaction of the mid to upper lung zone interstitial markings. No focal pulmonary lesion, compelling alveolar consolidation, pleural effusion, pneumothorax. The heart, pulmonary vasculature, and mediastinal contours are unremarkable. Negative for free air beneath the diaphragm. Bone density appears decreased corresponding with osteopenia on June 18, 2015 DEXA scan. No thoracic fractures or suspicious osseous lesions evident. IMPRESSION: #. Stigmata of obstructive lung disease. No acute pulmonary or cardiac process evident.
[2018-06-19 15:10] LABS: ABS Basophils 0 10^3/ul (0-0.2); ABS Eosinophils 0 10^3/ul (0-0.6); ABS Monocytes 0.5 10^3/ul (0-0.8); ABS Nucleated RBC 0 10^3/ul; Eosinophil % 0.6 % (0-6); Hematocrit 39 % (35-47); Lymphocyte % 11.8 % (25-47); Mean Corpuscular HGB Conc 33 g/dl (31-36); Mean Corpuscular Hemoglobin 30 pg (27-31); Mean Corpuscular Volume 90 fL (80-97); Mean Platelet Volume 8.2 um3 (7.4-10.4); Nucleated Red Blood Cells % 0; Platelet Count 234 10^3/ul (150-450); Red Blood Count 4.36 10^6/ul (4.00-5.40); Red Cell Distribution Width 15 % (10.5-15); White Blood Count 8.6 10^3/ul (3.5-10.8)
[2018-06-19 15:27] LABS: EGFR Non-African American 105.2 (>60)
[2018-06-19] MEDS ORDERED: Potassium Chlor TAB* 20 MEQ TAB.ER PO ONE (15:57)
[2018-06-19 17:07] LABS: Urine Appearance Clear; Urine Blood Negative (Negative); Urine Color Straw; Urine Ketones Negative (Negative); Urine Protein Negative (Negative); Urine Red Blood Cell Absent (Absent); Urine Specific Gravity 1.005 (1.010-1.030); Urine Urobilinogen Negative (Negative); Urine White Blood Cell Trace(0-5/hpf) (Absent)
[2018-06-19] MEDS ORDERED: Potassium Chloride LIQUID* 20 MEQ PACKET PO ONE (17:27)
[2018-06-19] MEDS ORDERED: Potassium Chloride LIQUID* 20 MEQ PACKET ONE (17:30)
[2018-06-19 17:49] VITALS: BP 120/52
--- NOTE | 2018-06-23 13:03 | PN ---
Progress Note - Progress Note Date of Service: 06/19/18 Note: Pt. seen in ER 06/19 for dizziness. Final urine culture is growing 50-75K GBS. U/ A showed trace leukocytes and epi cells. GBS has grown in pt.'s previous urine cultures. She had no urinary complaints in ED. Suspect contaminant. Will not treat at this time.
== END 2018-06-19 17:47 | disposition home or self-care (01) ==
LOC: ED 14:07
DX: R42 Dizziness and giddiness (principal); R11.0 Nausea; M54.2 Cervicalgia; R51 Headache; J44.9 Chronic obstructive pulmonary disease, unspecified; R00.1 Bradycardia, unspecified; Z88.0 Allergy status to penicillin; Z88.8 Allergy status to other drugs, medicaments and biological substances; Z88.6 Allergy status to analgesic agent; Z88.1 Allergy status to other antibiotic agents; Z91.012 Allergy to eggs; Z82.49 Family history of ischemic heart disease and other diseases of the circulatory system; Z83.3 Family history of diabetes mellitus; Z82.3 Family history of stroke; Z80.3 Family history of malignant neoplasm of breast
CPT/HCPCS: 36415; 70450; 71046; 80053; 81003; 81015; 83605; 83735; 84443; 84484; 85025; 86140; 87077; 87086; 93005; 96360; 96361; 99284; A9270-GY